=== PATIENT | male | born 1980 | race Caucasian/White ===

== ENCOUNTER 2016-05-22 18:01 | Emergency (ER) | payer MEDICAID, OTHER ==
[~2016-05-22] VITALS: Ht 188 cm; Wt 102.0 kg
[~2016-05-22 18:01] MED LIST: Z.0.NO CURRENT MEDS
[2016-05-22 18:02] VITALS: BP 145/85; PULSE 104; RESP 15; TEMP 97.7; O2SAT 96
--- NOTE | 2016-05-22 20:40 | PD ---
HPI Chief Complaint: GI Complaint Time Seen by Provider: 20:40 Travel History International Travel<30 days: No Contact w/Intl Traveler<30days: No Traveled to known affect area: No History of Present Illness HPI 36-year-old male presents to emergency Department with roughly 2-3 week history of rectal burning, pain, and bleeding after BM. Patient has no history of hemorrhoids in the past. Patient denies rectal trauma. Patient denies constipation or change in bowel movement. He has no fever, chills, nausea, vomiting, abdominal pain, or diarrhea. Patient has no significant heavy lifting at work. He has tried tyui-zoa-elgfhlh Preparation H without much improvement. Patient is concerned as he has had more bleeding and burning in the last few days. He has no known drug allergies. PFSH Past Medical History Cardiovascular Problems: Yes Past Surgical History Surgical History: No Previous Surgery Social History Alcohol Use: Yes ([facility]) Tobacco Use: Yes Substance Use: No Allergies-Medications (Allergen,Severity, Reaction): Coded Allergies: No Known Allergies (Verified , 05/22/16) Reported Meds & Prescriptions Reported Meds & Active Scripts Active No Active Prescriptions or Reported Medications Review of Systems Except as stated in HPI: all other systems reviewed are Neg General / Constitutional: No: Fever Eyes: No: Visual changes HENT: No: Headaches Cardiovascular: No: Chest Pain or Discomfort Respiratory: No: Shortness of Breath Gastrointestinal: Positive: Other (rectal pain. See history present illness.) , No: Nausea, Vomiting, Diarrhea, Abdominal Pain, Hematemesis, Hematochezia, Constipation, Indigestion, Dysphagia, Loss of Appetite Genitourinary: No: Dysuria Musculoskeletal: No: Pain Skin: No Rash Neurologic: No: Weakness Psychiatric: No: Depression Endocrine: No: Polydipsia Hematologic/Lymphatic: No: Easy Bruising Physical Exam Narrative GENERAL: Patient appears in mild distress. SKIN: Warm and dry. Normal color. Normal turgor. HEAD: Atraumatic. Normocephalic. EYES: Pupils equal and round. No scleral icterus. No injection or drainage. ENT: No nasal bleeding or discharge. Mucous membranes pink and moist. Pharynx is normal. NECK: Trachea midline. Neck is supple and nontender. CARDIOVASCULAR: Regular rate and rhythm. RESPIRATORY: No accessory muscle use. Clear to auscultation. Breath sounds equal bilaterally. GASTROINTESTINAL: Abdomen soft, non-tender, nondistended. Hepatic and splenic margins not palpable. RECTAL: No gross bleeding. Patient has small hemorrhoid at the 6 o'clock position which is not thrombosed or significantly erythematous. Is minimal. No rectal fissure. MUSCULOSKELETAL: Extremities without clubbing, cyanosis, or edema. No obvious deformities. NEUROLOGICAL: Awake and alert. No obvious cranial nerve deficits. Motor grossly within normal limits. Five out of 5 muscle strength in the arms and legs. Normal speech. PSYCHIATRIC: Appropriate mood and affect; insight and judgment normal. Data Data Last Documented VS Vital Signs Date Time Temp Pulse Resp B/P Pulse Ox O2 Delivery O2 Flow Rate FiO2 05/22/16 18:02 97.7 104 15 145/85 96 MDM Medical Decision Making Medical Screen Exam Complete: Yes Emergency Medical Condition: Yes Differential Diagnosis Rectal pain. Rectal burning. Hemorrhoid. Anal fissure. Narrative Course Patient is medically stable at time of exam. Patient is discussed with Dr. Koenig who recommends Anusol HC rectal cream 4 times daily when necessary. We discussed sitz baths and toileting habits. Patient to follow up if symptoms do not improve or worsen. Diagnosis Primary Impression: Hemorrhoid Qualified Code: K64.0 - First degree hemorrhoids Patient Instructions: General Instructions, Hemorrhoids (ED) Additional Instructions: Patient is discussed with Dr. Koenig who recommends Anusol HC rectal cream 4 times daily when necessary. We discussed sitz baths and toileting habits. Patient to follow up if symptoms do not improve or worsen. Med/Other Pt SpecificInfo: Prescription(s) given Scripts Hydrocortisone Rectal (Anusol-Hc Rectal)2.5% Cream1 Applic RECTAL QID #30 GM Ref 0 Prov:Ed Koenig MD 05/22/16 Disposition: DISCHARGE HOME Condition: Stable Misael Cabello May 22, 2016 20:40
[2016-05-22] MEDS ORDERED: HYDR2.5%T RECTAL (20:46)
[2016-05-22 21:09] VITALS: BP 119/77
== END 2016-05-22 21:16 | disposition home or self-care (01) ==
LOC: NEPE 18:01
DX: K64.9 Unspecified hemorrhoids (principal); Z72.0 Tobacco use
CPT/HCPCS: 99283